=== PATIENT | male | born 1975 | race Caucasian/White ===

== ENCOUNTER 2016-02-10 08:45 | Emergency (ER) | payer OTHER ==
[~2016-02-10] VITALS: Ht 185.4 cm; Wt 114.8 kg
[~2016-02-10 08:45] MED LIST: CLARITIN10 MG PO; CLINDAMYCIN 1%60 M1 TP; FISH OIL 1,001000 M2 PO; FLOMAX0.4 MG PO; GERI-KOT8.6 MG PO; HYDROCHLOROTH12.5 M1 PO; IBUPROFEN 800800 M1 PO; KLOR-CON M1010 MEQ PO; MINOCYCLINE HC100 M2 PO; NORCO 5-325 TA1 EACH PO; UNICOMPLEX M TA1 TA1 PO; VITAMIN D1000 UNI1 PO; ZOFRAN ODT4 MG PO
[2016-02-10] MEDS ORDERED: LIPITOR 20 MG T20 M1 PO (09:12)
[2016-02-10] MEDS ORDERED: COLACE100 MG PO (09:14)
[2016-02-10] MEDS ORDERED: FENOFIBRATE160 MG PO (09:14)
[2016-02-10] MEDS ORDERED: FISH OIL 1,001000 M2 PO (09:15)
[2016-02-10] MEDS ORDERED: AMPHETAMINE SAL10 MG PO (09:20)
[2016-02-10] MEDS ORDERED: TOPAMAX 100 MG100 MG PO (09:21)
[2016-02-10] MEDS ORDERED: LOPERAMIDE 2 MG2 M1 PO (09:22)
[2016-02-10 09:26] LABS: HEMATOCRIT 46.2 % (42.0-52.0); HEMOGLOBIN 15.6 gm/dL (14.0-18.0); MCH 32.8 pg (26.0-34.0); MCHC 33.7 % (28.0-37.0); MCV 97.4 fL (80.0-100.0); RBC 4.74 mil/uL (4.50-6.00); RDW 12.9 % (10.5-14.5); WBC 13.6 thou/uL (4.0-11.0)
[2016-02-10 09:27] LABS: MANUAL DIFF YES
[2016-02-10 09:34] LABS: CALCIUM 8.9 mg/dL (8.5-10.1); CREATININE 1.2 mg/dL (0.6-1.3); POTASSIUM 3.6 mmol/L (3.5-5.1)
[2016-02-10 10:10] LABS: URINE BILIRUBIN NEGATIVE (Negative); URINE BLOOD 3+ (Negative); URINE COLOR YELLOW; URINE GLUCOSE-RANDOM* NEGATIVE (Negative); URINE KETONES NEGATIVE (Negative); URINE LEUKOCYTES-REFLEX NEGATIVE (Negative); URINE PROTEIN (DIPSTICK) NEGATIVE (Negative); URINE SPECIFIC GRAVITY 1.025 (1.003-1.035); URINE UROBILINOGEN 0.2 E.U./dl (0.2-1.0)
[2016-02-10 10:29] LABS: SQUAMOUS 0-3 Few /LPF (0-3)
[2016-02-10 10:30] LABS: CASTS None Seen /LPF (None Seen); CRYSTALS None Seen /LPF (None Seen); URINE WBC-REFLEX 0-5 Rare /HPF (0-5)
[2016-02-10] MEDS ORDERED: FLOMAX0.4 MG PO (10:50)
[2016-02-10] MEDS ORDERED: TORADOL 10 MG T10 MG PO (10:50)
[2016-02-10] MEDS ORDERED: ONDANSETRON HCL4 M2 PO (10:50)
[2016-02-10] MEDS ORDERED: CIPRO500 MG PO (10:50)
[2016-02-10] MEDS ORDERED: NORCO 5-325 TA1 EACH PO (10:51)
[2016-02-10 11:05] VITALS: BP 131/79
[2016-02-10 11:29] LABS: ABSOLUTE NEUTROPHILS 11.6 thou/uL (1.4-8.2); ATYPICAL LYMPHS 1 %; PLATELET COUNT 184 thou/uL (150-400); TOTAL CELL COUNT 100
== END 2016-02-10 11:07 | disposition home or self-care (01) ==
LOC: ER 08:45
PROVIDERS: Physician Assistant
DX: N13.2 Hydronephrosis with renal and ureteral calculous obstruction (principal); R33.9 Retention of urine, unspecified; D72.828 Other elevated white blood cell count; F17.210 Nicotine dependence, cigarettes, uncomplicated; Z87.442 Personal history of urinary calculi; Z88.8 Allergy status to other drugs, medicaments and biological substances

== ENCOUNTER 2018-09-10 10:05 | Emergency (ER) | payer OTHER ==
[~2018-09-10] VITALS: Ht 188 cm; Wt 133.4 kg
[~2018-09-10 10:05] MED LIST changes: +AMPHETAMINE SAL10 MG PO; +CIPRO500 MG PO; +COLACE100 MG PO; +FENOFIBRATE160 MG PO; +LIPITOR 20 MG T20 M1 PO; +LOPERAMIDE 2 MG2 M1 PO; +ONDANSETRON HCL4 M2 PO; +TOPAMAX 100 MG100 MG PO; +TORADOL 10 MG T10 MG PO
[2018-09-10 11:09] LABS: URINE BILIRUBIN NEGATIVE (Negative); URINE BLOOD NEGATIVE (Negative); URINE CLARITY CLEAR; URINE COLOR YELLOW; URINE GLUCOSE-RANDOM* NEGATIVE (Negative); URINE KETONES NEGATIVE (Negative); URINE LEUKOCYTES-REFLEX TRACE (Negative); URINE NITRITE-REFLEX NEGATIVE (Negative); URINE PROTEIN (DIPSTICK) NEGATIVE (Negative); URINE SPECIFIC GRAVITY 1.015 (1.005-1.035); URINE UROBILINOGEN 0.2 E.U./dl (0.2-1.0)
[2018-09-10 11:22] LABS: ABSOLUTE NEUTROPHILS 3.2 thou/uL (1.4-8.2); BASOPHILS 0.6 % (0.0-2.0); EOSINOPHILS 1.2 % (0.0-3.0); HEMATOCRIT 45.6 % (42.0-52.0); HEMOGLOBIN 15.5 gm/dL (14.0-18.0); LYMPHOCYTES 24.6 % (24.0-44.0); MCH 32.8 pg (26.0-34.0); MCHC 33.9 g/dL (28.0-37.0); MCV 96.9 fL (80.0-100.0); MONOCYTES 10.2 % (1.0-8.0); PLATELET COUNT 165 thou/uL (150-400); POLYS 63.4 % (36.0-66.0); RBC 4.71 mil/uL (4.50-6.00); RDW 13.9 % (10.5-14.5)
[2018-09-10 11:29] LABS: CALCIUM 9.1 mg/dL (8.5-10.1); CREATININE 0.9 mg/dL (0.7-1.3)
[2018-09-10 11:36] LABS: ALBUMIN 3.6 g/dL (3.4-5.0); TOTAL BILIRUBIN 0.3 mg/dL (<0.1-1.0); TOTAL PROTEIN 7.3 g/dL (6.4-8.2)
[2018-09-10] MEDS ORDERED: NORCO 5-325 TA1 EAC1 PO (12:50)
[2018-09-10] MEDS ORDERED: DIFLUCAN200 MG PO (12:50)
[2018-09-10] MEDS ORDERED: CIPRO500 MG PO (12:51)
[2018-09-10 13:06] LABS: SQUAMOUS 0-3 Few /LPF (0-3)
[2018-09-10 13:07] LABS: BACTERIA 1-9 Few /HPF (None Seen); CASTS None Seen /LPF (None Seen); CRYSTALS None Seen /LPF (None Seen); URINE RBC 0-2 Rare /HPF (0-2); URINE WBC 0-5 Rare /HPF (0-5)
[2018-09-10 14:22] VITALS: BP 161/94
[2018-09-10] MEDS ORDERED: ZYRTEC10 M2 PO (14:25)
== END 2018-09-10 14:27 | disposition home or self-care (01) ==
LOC: ER 10:05
PROVIDERS: Emergency Medicine; Nurse Practitioner Family
DX: R30.0 Dysuria (principal); R10.2 Pelvic and perineal pain; F17.210 Nicotine dependence, cigarettes, uncomplicated; Z87.442 Personal history of urinary calculi; Z88.2 Allergy status to sulfonamides; Z88.1 Allergy status to other antibiotic agents